=== PATIENT | female | born 1995 | race Caucasian/White ===

== ENCOUNTER 2019-09-07 06:32 | Emergency (ER) | payer OTHER ==
[~2019-09-07] VITALS: Ht 167.6 cm; Wt 70.9 kg
[2019-09-07] MEDS ORDERED: METF-791 PO (06:53)
[2019-09-07] MEDS ORDERED: BUSP30TA PO (06:53)
[2019-09-07] MEDS ORDERED: TETANUS/DIPHTHERIA TOX ADSORB ADULT 0.5ML SYR/VIAL (90714) IM ONE (07:00)
[2019-09-07] MEDS ORDERED: NS 1,000 ML IV ONE (07:00)
[2019-09-07 07:15] LABS: BASO % 0.3 % (0.0-1.0); EOS # 0.2 10^3/uL (0.0-0.5); EOS % 2.5 % (0.0-3.0); HEMATOCRIT 39.1 % (36.0-47.0); HEMOGLOBIN 13.1 g/dl (12.0-15.5); LYMPH # 1.4 10^3/uL (1.5-5.0); MEAN CORPUSCULAR HGB CONC 33.5 g/dl (32.0-36.5); MEAN CORPUSCULAR VOLUME 89.5 fl (80.0-96.0); MONO # 0.7 10^3/uL (0.0-0.8); MONO % 7.1 % (0.0-5.0); NEUTROPHILS # 7.1 10^3/uL (1.5-8.5); NEUTROPHILS % 74.7 % (36.0-66.0); PLATELET COUNT, AUTOMATED 403 10^3/uL (150-450); RED BLOOD COUNT 4.37 10^6/uL (4.00-5.40); WHITE BLOOD COUNT 9.6 10^3/uL (4.0-10.0)
[2019-09-07 07:40] LABS: ALBUMIN 4.1 GM/DL (3.2-5.2); ALT/SGPT 87 U/L (12-78); BILIRUBIN,DIRECT 0.4 MG/DL (0.0-0.2); BILIRUBIN,TOTAL 1.8 MG/DL (0.2-1.0); BLOOD UREA NITROGEN 10 MG/DL (7-18); CALCIUM LEVEL 9.3 MG/DL (8.5-10.1); CARBON DIOXIDE LEVEL 32 MEQ/L (21-32); CHLORIDE LEVEL 101 MEQ/L (98-107); CREATININE FOR GFR 0.64 MG/DL (0.55-1.30); GLOMERULAR FILTRATION RATE > 60.0 (>60); GLUCOSE, FASTING 92 MG/DL (70-100); LIPASE 185 U/L (73-393); POTASSIUM SERUM 3.5 MEQ/L (3.5-5.1); SODIUM LEVEL 139 MEQ/L (136-145)
[2019-09-07 07:44] LABS: HCG, SERUM QUALITATIVE NEGATIVE (NEGATIVE)
[2019-09-07] MEDS ORDERED: ISOVUE-370 76% 100ML VIAL (Q9967) As Ordered ONE (07:47)
[2019-09-07 08:15] VITALS: BP 113/73
--- NOTE | 2019-09-07 08:16 | REP ---
Head CT without contrast: History: Trauma. Comparison study: No comparison. CT findings: Bone window settings demonstrate an intact bony calvarium. There is no evidence of skull fracture or incidental bony calvarial lesion. The visualized paranasal sinuses appear clear. No intraorbital abnormality is seen. On soft tissue window setting images; the lateral, third, and fourth ventricles are normal in size and position. Soliz-white differentiation pattern is normal above and below the tentorium. There are is no evidence of intracranial hemorrhage. No mass, edema, infarction, or midline shift is seen. No extra-axial fluid collection is appreciated. Impression: Negative noncontrast head CT. Electronically Signed by Luciano Romero MD 09/07/2019 08:08 A
--- NOTE | 2019-09-07 08:17 | REP ---
CT study of the cervical spine without contrast: History: Trauma. Technique: Helical scanning is acquired and overlapping 2 mm high resolution axial images were generated and reviewed at bone and soft tissue window settings. Coronal and sagittal multiplanar re-formations images are generated. CT findings: There is no evidence of cervical spine element fracture. No skull base fracture is seen. Cervical vertebral body heights are preserved. Alignment is normal. Facet joints are normally aligned bilaterally at each cervical level on multiplanar re-formations images. There is no evidence of intraspinal or paraspinal hematoma. No extra vertebral abnormality is seen. Impression: Negative CT study of the cervical spine without contrast. No fracture seen. Electronically Signed by Luciano Romero MD 09/07/2019 08:09 A
[2019-09-07 08:41] LABS: APPEARANCE, URINE HAZY (CLEAR); BACTERIA, URINE AUTO 1+ (NEGATIVE); BILIRUBIN, URINE AUTO NEGATIVE (NEGATIVE); BLOOD, URINE BLOOD 3+ (NEGATIVE); COLOR, URINE YELLOW (YELLOW); GLUCOSE, URINE (UA) AUTO NEGATIVE (NEGATIVE); KETONE, URINE AUTO NEGATIVE (NEGATIVE); LEUKOCYTE ESTERASE, URINE AUTO NEGATIVE (NEGATIVE); MUCUS, URINE SMALL (NEGATIVE); NITRITE, URINE AUTO NEGATIVE (NEGATIVE); PROTEIN, URINE AUTO NEGATIVE (NEGATIVE); RBC, URINE AUTO 25 /HPF (0-3); SQUAMOUS EPITHELIAL CELL UR AU 4 /HPF (0-6); UROBILINOGEN, URINE AUTO 0.2 mg/dL (0.0-2.0); WBC, URINE AUTO 3 /HPF (0-3)
--- NOTE | 2019-09-07 08:41 | REP ---
CT chest with IV contrast: History: Trauma. CT contrast dose: 100 mL of intravenous Isovue [address] findings: Preliminary digital head tennis professional radiograph is unremarkable. There is no evidence of pneumothorax or hemothorax. Lung odom are essentially clear. There is minimal linear fibrosis versus plate-like atelectasis in the right middle lobe. There is a small area of subpleural fibrosis in the right upper lobe. Lung odom are otherwise clear. There is good opacification of the pulmonary arterial tree and the thoracic aorta. There is no evidence of aneurysm, dissection, or pulmonary embolism. A small quantity of residual thymic tissue is visible in the anterior mediastinum. No mediastinal hematoma is appreciated. No hilar or mediastinal mass or adenopathy is seen. No pleural or pericardial effusion noted. No sternal, rib, T-spine or other fracture is appreciated. Impression: Linear fibrosis versus plate-like atelectasis right middle lobe. Otherwise negative CT study of the chest. Electronically Signed by Luciano Romero MD 09/07/2019 09:44 A
--- NOTE | 2019-09-07 08:46 | REP ---
CT abdomen and pelvis with IV but without oral contrast: History: Trauma. No comparison CT study. CT contrast dose: 100 mL of intravenous Isovue [address] findings: Digital preliminary shampoo person radiograph demonstrates a biliary stent in the central abdomen. There is a dextroconvex curvature in the lumbar spine. The bowel gas pattern is normal. The liver is at the upper range of normal with the craniocaudal vertical span of 16.5 cm in the midclavicular line. No focal hepatic lesion is seen. No intrahepatic bile duct dilation is seen. The gallbladder is unremarkable. There is a stent in the distal common bile duct coursing into the second portion of the duodenum. The CBD just above the stent is slightly prominent measuring 8 mm in AP dimension. No pancreatic mass lesion or cyst is seen. The spleen is at the upper range of normal in size measuring 12.0 cm as well. No adrenal lesion is seen. The kidneys enhance symmetrically are morphologically intact. No abnormalities noted in the gallbladder. Small and large intestinal bowel loops are unremarkable in the abdomen and pelvis. The uterus is tipped somewhat to the left. No uterine or adnexal abnormality is seen. Normal appendix is seen deep in the right pelvis. There is no evidence of free intraperitoneal air or abnormal fluid. Bone window settings demonstrate the lumbar scoliosis but no traumatic bony abnormality is seen. Impression: Lumbar scoliosis. Common bile duct stent in place. CBD 8 mm just above the stent. The liver and spleen at the upper range of normal in size. No traumatic abnormality seen. Electronically Signed by Luciano Romero MD 09/07/2019 09:44 A
== END 2019-09-07 09:16 | disposition home or self-care (01) ==
LOC: M ED 06:32
DX: S30.1XXA Contusion of abdominal wall, initial encounter (principal); S20.212A Contusion of left front wall of thorax, initial encounter; V48.0XXA Car driver injured in noncollision transport accident in nontraffic accident, initial encounter; Y92.9 Unspecified place or not applicable; Y93.89 Activity, other specified; Y99.9 Unspecified external cause status; E11.9 Type 2 diabetes mellitus without complications; F32.9 Major depressive disorder, single episode, unspecified; M41.86 Other forms of scoliosis, lumbar region; Z96.89 Presence of other specified functional implants; R91.8 Other nonspecific abnormal finding of lung field; Z79.84 Long term (current) use of oral hypoglycemic drugs; Z79.899 Other long term (current) drug therapy
CPT/HCPCS: 70450; 71260; 72125; 74177; 80048; 80076; 81001; 83690; 84703; 85025; 90471; 90714; 96360; 96361; 99284; Q9967

== ENCOUNTER → 2020-04-14 | Outpatient (CLI) | payer OTHER ==
[~2020-04-14] MED LIST: BUSP30TA PO; ISOVUE-370 76% 100ML VIAL As Ordered ONE; METF-838 PO
--- NOTE | 2020-04-14 12:04 | REP ---
HYSTEROSALPINGOGRAM: Hysterosalpingogram is performed. Referring provider injected contrast into the endometrial cavity and I performed fluoroscopic imaging. Uterine cavity opacifies with contrast and demonstrates a configuration consistent with a unicornuate uterus. No filling defect is seen within the endometrial cavity. There is passage of contrast into a nondilated left fallopian tube with free intraperitoneal spillage indicating patency of a left fallopian tube. No right fallopian tube or right uterine horn is visualized. 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 No right uterine horn or fallopian tube is visualized. 0.9 minutes of fluoroscopy time is utilized. Electronically Signed by Magen Soliz MD 04/14/2020 02:56 P
== END ==
LOC: M RADPRO 10:18
PROVIDERS: ATTEND Obstetrics & Gynecology
DX: Q51.4 Unicornate uterus (principal)
CPT/HCPCS: 58340; 74740; Q9967